=== PATIENT | female | born 1945 | race Caucasian/White ===

== ENCOUNTER 2018-04-11 11:45 | Emergency (ER) | payer MEDICAID ==
[~2018-04-11] VITALS: Ht 154.9 cm; Wt 72.6 kg
--- NOTE | 2018-04-11 11:45 | NUR ---
PT BIBA BLS TO BED 9
[2018-04-11 11:53] VITALS: BP 173/71
--- NOTE | 2018-04-11 12:01 | NUR ---
Patient being evaluated by physician at bedside.
[2018-04-11] MEDS ORDERED: KETOROLAC 30 MG/ML VIAL IM ONE (12:05)
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
[2018-04-11] MEDS ORDERED: KETOROLAC 30 MG/ML VIAL ONE (12:17)
--- NOTE | 2018-04-11 13:21 | NUR ---
pt taken rad
--- NOTE | 2018-04-11 13:28 | NUR ---
Patient back from [facility].
[2018-04-11 14:57] VITALS: BP 135/75
--- NOTE | 2018-04-11 14:57 | NUR ---
Patient discharged with v/s stable. Written and verbal after care instructions given and explained. Patient alert, oriented and verbalized understanding of instructions. Ambulatory with steady gait. All questions addressed prior to discharge. ID band removed. Patient advised to follow up with PMD. Rx of MOTRIN AND TRAMADOL given. Patient educated on indication of medication including possible reaction and side effects. Opportunity to ask questions provided and answered.
== END 2018-04-11 14:57 | disposition home or self-care (01) ==
LOC: MED 11:45
DX: S22.32XA Fracture of one rib, left side, initial encounter for closed fracture (principal); E11.9 Type 2 diabetes mellitus without complications; I10 Essential (primary) hypertension; G30.9 Alzheimer's disease, unspecified; F02.80 Dementia in other diseases classified elsewhere, unspecified severity, without behavioral disturbance, psychotic disturbance, mood disturbance, and anxiety; W19.XXXA Unspecified fall, initial encounter; Y93.89 Activity, other specified; Y92.89 Other specified places as the place of occurrence of the external cause; Y99.8 Other external cause status
CPT/HCPCS: 71111; 82948; 96372; 99284; J1885